=== PATIENT | female | born 1945 | race Caucasian/White ===

== ENCOUNTER 2018-11-27 11:28 | Outpatient (CLI) | payer OTHER | END 2018-11-27 11:29 | disposition home or self-care (01) | LOC: DI.N 11:28 | DX: Z12.31 Encounter for screening mammogram for malignant neoplasm of breast (principal) | CPT/HCPCS: 77067 ==

== ENCOUNTER 2019-11-18 12:25 | Outpatient (CLI) | payer MEDICARE ==
--- NOTE | 2019-11-18 15:31 | Mammography Report ---
Reason: ROUTINE MAMMO Procedure Date: 11/18/2019 Accession Number: [id number] / [id number] Procedure: MGN - Screening Mammo w/Checo CPT Code: Final Report FULL RESULT: EXAM: Screening Mammo w/Checo DATE: 11/18/2019 12:59 PM CLINICAL HISTORY: Routine screening TECHNIQUE: (B) - Bilateral CC and MLO views were obtained. COMPARISON: 11/27/2018 PARENCHYMAL PATTERN: (D) - The breasts demonstrate heterogeneously dense fibroglandular parenchyma bilaterally. FINDINGS: No significant interval change. There are no suspicious masses, calcifications, or areas of distortion. IMPRESSION: Negative examination. BI-RADS category 1. RECOMMENDATION: (ANNUAL) - Recommend routine annual screening mammography. BI-RADS CATEGORY: (1) - Negative. STANDARD QUALIFYING STATEMENTS: 1. This examination was not reviewed with the aid of Computer-Aided Detection (CAD). 2. A negative or benign imaging report should not preclude biopsy if clinically suspicious findings are present. 3. Dense breasts may obscure an underlying neoplasm. 4. This examination was reviewed with the aid of 3D breast imaging (tomosynthesis).
== END 2019-11-18 12:26 | disposition home or self-care (01) ==
LOC: DI.N 12:25
DX: Z12.31 Encounter for screening mammogram for malignant neoplasm of breast (principal)
CPT/HCPCS: 77063; 77067

== ENCOUNTER 2020-09-22 11:26 | Outpatient (CLI) | payer MEDICARE ==
--- NOTE | 2020-09-22 15:13 | XRAY Report ---
PROCEDURE: Hip w/Pelvis 2-3V LT INDICATIONS: ACUTE ON CHRONIC LT HIP PAIN TECHNIQUE: AP pelvis with lateral view(s) of the bilateral hip(s). COMPARISON: None. FINDINGS: Bones: No fractures or dislocations. Pelvic ring appears intact. No suspicious bony lesions. Bila teral hip joint space narrowing is present, left greater than right. Minimal periarticular osteophyte s are present. Narrowing of sacroiliac joints are noted. Soft tissues: The visualized bowel gas pattern is normal. No suspicious soft tissue calcifications. IMPRESSION: Bilateral osteoarthritis within the hips as above. Reviewed by: Mariposa Walters MD on 09/22/2020 3:11 PM PST Approved by: Mariposa Walters MD on 09/22/2020 3:11 PM PST Station ID: [id number]
== END 2020-09-22 11:27 | disposition home or self-care (01) ==
LOC: DI.N 11:26
PROVIDERS: ATTEND Family Medicine
DX: M16.0 Bilateral primary osteoarthritis of hip (principal)

== ENCOUNTER 2021-01-05 15:07 | Outpatient (CLI) | payer MEDICARE ==
--- NOTE | 2021-01-06 09:35 | Mammography Report ---
BILATERAL DIGITAL SCREENING MAMMOGRAM 3D/2D: 01/05/2021 CLINICAL: Family history of breast cancer. Routine screening. Comparison is made to exams dated: 11/18/2019 mammogram and 11/27/2018 mammogram - [facility]. The tissue of both breasts is heterogeneously dense. This may lower the sensitivity of ma mmography. No significant masses, calcifications, or other findings are seen in either breast. There has been no significant interval change. IMPRESSION: NEGATIVE There is no mammographic evidence of malignancy. A 1 year screening mammogram is recommended. This exam was interpreted at Station ID: [id number]. NOTE: For mammograms, a report in lay terms will be sent to the patient. Approximately 15% of breast malignancies will not be visualized mammographically. In the management of a palpable breast mass, a negative mammogram must not discourage biopsy of a clinically suspicious lesion. Electronically Signed By: Arnoldo Shi M.D. ddp/penrad:01/05/2021 16:20:30 ACR BI-RADS Category 1: Negative 3341F PARENCHYMAL PATTERN: (D) - The breast(s) demonstrate(s) heterogeneously dense fibroglandular parenchy ma. BI-RADS CATEGORY: (1) - 1 RECOMMENDATION: (ANNUAL) - Recommend routine annual screening mammography. [id number] 1 year screening LATERALITY: (B)
== END 2021-01-05 15:08 | disposition home or self-care (01) ==
LOC: DI.N 15:07
DX: Z12.31 Encounter for screening mammogram for malignant neoplasm of breast (principal); Z80.3 Family history of malignant neoplasm of breast

== ENCOUNTER 2022-08-14 17:43 | Emergency (ER) | payer MEDICARE ==
[2022-08-14] MEDS ORDERED: oxyCODONE 5 MG TABLET PO STA (18:11)
--- NOTE | 2022-08-14 18:58 | ED Physician Documentation ---
PD HPI BACK PAIN - Stated complaint Stated Complaint: BACK PX - Chief complaint Chief Complaint: Back Pain - History obtained from History obtained from: Patient, EMS - History of Present Illness Timing - onset: How many days ago (1) Timing - duration: Days (1) Timing - details: Gradual onset Pain level max: 8 Pain level now: 8 Location: Lower, Right Quality: Pain, Spasm, Similar to prior episodes Associated symptoms: No: Fever, Weakness, Numbness, Incontinent of urine, Unable to urinate, Hematuria, Incontinent of stool Improves with: Rest Worsened by: Movement Contributing factors: No: Lifting, Twisting, Trauma, Anticoagulated, Cancer, IVDA - Additional information Additional information: Patient is a 77-year-old female who states that she has had back pain that started today. She states it is similar to her prior episodes of sciatica. She states that radiates down the left leg. Worse with movement, better with rest. Complains of pain and spasm. No incontinence of urine. No numbness or tingling. Has not taken anything for the pain other than Tylenol. She did have back surgery in 1979. Patient denies any trauma. She has been moving benches around her house. Patient is on flecainide, Fosamax and metoprolol at home Review of Systems Constitutional: denies: Fever, Chills Respiratory: denies: Cough GI: denies: Abdominal Pain, Nausea, Vomiting, Diarrhea : denies: Incontinent Skin: denies: Rash Musculoskeletal: denies: Neck pain Neurologic: denies: Focal weakness PD PAST MEDICAL HISTORY - Past Medical History Past Medical History: Yes Cardiovascular: Atrial fibrillation Musculoskeletal: Osteoporosis - Allergies Allergies/Adverse Reactions: Allergies Allergy/AdvReac Type Severity Reaction Status Date / Time No Known Drug Allergies Allergy Verified 08/14/22 17:49 PD ED PE NORMAL - Vitals Vital signs reviewed: Yes - General General: Alert and oriented X 3, No acute distress - HEENT HEENT: Moist mucous membranes - Neck Neck: Supple, no meningeal sign - Cardiac Cardiac: RRR, Strong equal pulses - Respiratory Respiratory: No respiratory distress, Clear bilaterally - Abdomen Abdomen: Soft, Non tender, Non distended - Back Back: No spinal TTP (No midline tenderness palpation or percussion. No step-off or deformity. There is paraspinal spasm left low lumbar.) - Derm Derm: Warm and dry - Extremities Extremities: No edema - Neuro Neuro: Alert and oriented X 3, No motor deficit, No sensory deficit, Other (Normal bilateral lower extremity patellar and ankle jerk reflexes. Normal great toe extension bilaterally. no saddle anesthesia) - Psych Psych: Normal mood, Normal affect Results - Vitals Vitals: Vital Signs - 24 hr 08/14/22 17:49 Temperature 37.0 C Heart Rate 64 Respiratory 18 Rate Blood Pressure 152/100 H O2 Saturation 100 Oxygen O2 Source Room air PD MEDICAL DECISION MAKING - ED course Complexity details: re-evaluated patient, considered differential (No cauda equina, no spinal epidural abscess, no fracture, no aortic dissection or evidence of aneursym rupture), d/w patient ED course: 77-year-old female with low back pain, similar to prior episodes of sciatica. No acute injury. Given oxycodone, Toradol, Robaxin. Patient will need to be rechecked after medication to see if her spasms are improving. If symptoms are improving as expected, she will likely be able to go home on pain medication and muscle relaxants. Would avoid Flexeril given the flecainide. No evidence of cauda equina, epidural abscess. No focal neurological deficits. Patient signed out to the oncoming emergency department physician. This document was made in part using voice recognition software. While efforts are made to proofread this document, sound alike and grammatical errors may occur. Departure - Departure Clinical Impression: Back pain Qualifiers: Back pain location: low back pain Chronicity: acute Back pain laterality: left Sciatica presence: with sciatica Sciatica laterality: sciatica of left side Qualified Code(s): M54.42 - Lumbago with sciatica, left side Sciatica Qualifiers: Laterality: left Qualified Code(s): M54.32 - Sciatica, left side Condition: Good
[2022-08-14] MEDS ORDERED: KETOROLAC 30 MG/ML VIAL IM STA (19:02)
[2022-08-14] MEDS ORDERED: methocarbamoL 500 MG TABLET PO STA (19:02)
[2022-08-14] MEDS ORDERED: HYDROmorphone 1 MG/ML CARPUJECT IM STA (20:10)
--- NOTE | 2022-08-14 20:11 | ED Physician Documentation ---
ED Addendum - Addendum Addendum: 08/14/22 20:[address] Bob approximately 7 PM shift change. Per signout she has a history of back issues and presents with an exacerbation of pain in the left lower back, much worse with movement. There was no specific injury. Pain is mild to nonexistent at rest but severe with any motion. My evaluation she has received Robaxin, oxycodone, and Toradol and is still in significant pain if she tries to move. Will image the lumbar spine given advanced age and history of osteoporosis. 08/14/22 22:38 Much better after 1mg IM dilaudid. CT L spine showing severe DJD, no fx or pathologic lesion otherwise. 08/14/22 22:39 Dispo: [facility] home Condition stable
[2022-08-14] MEDS ORDERED: CYCLOBENZAPRINE 10 MG Prepack 2 PO PRN (21:10)
[2022-08-14] MEDS ORDERED: oxyCODONE/ACET 5/325 Prepack 4 PO STA (21:10)
[2022-08-14 21:27] VITALS: BP 143/71
--- NOTE | 2022-08-14 21:35 | CT Report ---
PROCEDURE: LUMBAR SPINE WO INDICATIONS: back inj TECHNIQUE: Noncontrast 3 mm thick sections acquired from the T12 level to the sacrum. Sagittal and coronal refo rmats were constructed. For radiation dose reduction, the following was used: automated exposure co ntrol, adjustment of mA and/or kV according to patient size. COMPARISON: None. FINDINGS: Image quality: Excellent. Bones: There is preserved bony alignment. No definite acute fractures. Specifically, no acute verte bral body compression fractures. No suspicious lytic or blastic bony lesions. Central spinal calibe r is of normal overall caliber. No pars defects. There is multilevel degenerative disc disease incl uding moderate to severe narrowing at L3-L4 and L4-L5 as well as moderate degeneration at L5-S1. Ther e is mild facet arthropathy at L5-S1. No definite high-grade spinal canal or neuroforaminal narrowing with evaluation limited on CT. Soft tissues: No retroperitoneal masses or hematomas. Visualized aorta is normal in caliber. IMPRESSION: 1. No fracture or subluxation. 2. Multilevel degenerative disc disease including moderate to severe degeneration in the lower lumbar spine. Reviewed by: Arnoldo Shi MD on 08/14/2022 9:34 PM PST Approved by: Arnoldo Shi MD on 08/14/2022 9:34 PM PST Station ID: [id number]
== END 2022-08-14 21:40 | disposition home or self-care (01) ==
LOC: EDUNIT# → ED 17:43
DX: M54.42 Lumbago with sciatica, left side (principal); I48.91 Unspecified atrial fibrillation; M81.0 Age-related osteoporosis without current pathological fracture
CPT/HCPCS: 96372; 99284

== ENCOUNTER 2022-08-14 23:39 | Emergency (ER) | payer MEDICARE ==
[2022-08-14] MEDS ORDERED: SODIUM CHLORIDE 0.9% 500 ML IV STA (23:48)
[2022-08-14 23:57] LABS: BASOPHILS # (AUTO) 0.1 10^3/uL (0.0-0.1); BASOPHILS % (AUTO) 0.6 %; EOSINOPHILS # (AUTO) 0.1 10^3/uL (0.0-0.7); EOSINOPHILS % (AUTO) 1.2 %; HCT - HEMATOCRIT 42.9 % (37.0-47.0); HGB - HEMOGLOBIN 14.1 g/dL (12.0-16.0); LYMPHOCYTES # (AUTO) 2.3 10^3/uL (1.5-3.5); LYMPHOCYTES % (AUTO) 19.9 %; MEAN CORPUSCULAR HEMOGLOBIN 30.1 pg (27.0-31.0); MEAN CORPUSCULAR HGB CONC 32.9 g/dL (32.0-36.0); MEAN CORPUSCULAR VOLUME 91.5 fL (81.0-99.0); MEAN PLATELET VOLUME 9.8 fL (7.9-10.8); MONOCYTES # (AUTO) 0.6 10^3/uL (0.0-1.0); MONOCYTES % (AUTO) 4.7 %; NEUTROPHILS # (AUTO) 8.5 10^3/uL (1.5-6.6); NEUTROPHILS % (AUTO) 73.3 %; PLT - PLATELET COUNT 285 10^3/uL (130-450); RED BLOOD COUNT 4.69 10^6/uL (4.20-5.40); RED CELL DISTRIBUTION WIDTH 13.7 % (12.0-15.0); WHITE BLOOD COUNT 11.6 x10^3/uL (4.8-10.8)
--- NOTE | 2022-08-15 00:01 | ED Physician Documentation ---
History of Present Illness - Stated complaint Stated Complaint: DIZZY - Chief complaint Chief Complaint: General - History obtained from History obtained from: Patient - Additonal information Additional information: 77yF with pmh afib presents s/p acute episode of nausea and lightheadedness this evening. patient was just here an hour ago for sciatica and received several pain meds (robaxin, oxycodone, IM dilaudid) with relief of her pain but on arrival home she began to feel nauseous and tried to lift the toilet seat to throw up and felt suddenly very weak then slumped to to ground in a controlled fall. no HT. no injuries noted. feels better at present. denies cp, palpitations, soa. received zofran 4mg iv en route with resolution of nausea Review of Systems Ten Systems: 10 systems reviewed and negative Constitutional: denies: Fever, Chills GI: reports: Nausea Neurologic: reports: Generalized weakness, Other (lightheadedness) PD PAST MEDICAL HISTORY - Past Medical History Cardiovascular: Atrial fibrillation Musculoskeletal: Osteoporosis - Present Medications Home Medications: Ambulatory Orders Medication Instructions Recorded Confirmed Cyclobenzaprine [Flexeril] 10 mg PO TID PRN #20 tablet 08/14/22 08/15/22 Dabigatran [Pradaxa] 150 mg PO DAILY 08/14/22 08/14/22 Oxycodone HCl/Acetaminophen 1 - 2 each PO Q6H PRN #14 tablet 08/14/22 08/15/22 [Percocet 5-325 mg Tablet] atenoloL [Tenormin] 50 mg PO DAILY 08/14/22 08/14/22 - Allergies Allergies/Adverse Reactions: Allergies Allergy/AdvReac Type Severity Reaction Status Date / Time No Known Drug Allergies Allergy Verified 08/14/22 23:45 PD ED PE NORMAL - Vitals Vital signs reviewed: Yes - General General: Alert and oriented X 3, No acute distress, Well developed/nourished - HEENT HEENT: Atraumatic, PERRL, EOMI, Pharynx benign, Other (dry MM) - Neck Neck: No bony TTP - Cardiac Cardiac: RRR - Respiratory Respiratory: No respiratory distress, Clear bilaterally - Abdomen Abdomen: Non tender, Non distended - Derm Derm: Normal color, Warm and dry - Extremities Extremities: No deformity - Neuro Neuro: Alert and oriented X 3, No motor deficit, No sensory deficit - Psych Psych: Normal mood, Normal affect Results - Vitals Vitals: Vital Signs - 24 hr 08/14/22 08/14/22 08/15/22 23:45 23:48 00:55 Temperature 36.6 C 36.6 C Heart Rate 60 60 66 Respiratory 16 16 16 Rate Blood Pressure 144/75 H 144/75 H 134/67 H O2 Saturation 99 99 96 08/15/22 08/15/22 08/15/22 01:28 02:31 06:00 Temperature Heart Rate 65 71 Respiratory 13 15 11 L Rate Blood Pressure 130/66 124/69 O2 Saturation 95 98 Oxygen O2 Source Room air - EKG (time done) 0020 Rate: Rate (enter#) (61) Rhythm: NSR Intervals: Other (QT 675) Ischemia: Normal ST segments 0134 Rhythm: NSR Intervals: Other (qt/qtc 491/495) - Labs Labs: Laboratory Tests 08/14/22 08/14/22 08/15/22 00:08 23:50 00:08 WBC 11.6 H RBC 4.69 Hgb 14.1 Hct 42.9 MCV 91.5 MCH 30.1 MCHC 32.9 RDW 13.7 Plt Count 285 MPV 9.8 Neut # (Auto) 8.5 H Lymph # (Auto) 2.3 [place] # (Auto) 0.6 Eos # (Auto) 0.1 Baso # (Auto) 0.1 Absolute Nucleated RBC 0.00 Nucleated RBC % 0.0 Sodium 140 Potassium 3.5 Chloride 107 Carbon Dioxide 25 Anion Gap 8.0 BUN 18 Creatinine 0.8 Estimated GFR (MDRD) 70 L Glucose 108 H Calcium 8.7 Magnesium 1.9 Total Bilirubin 0.5 AST 16 ALT 13 Alkaline Phosphatase 52 Total Protein 6.8 Albumin 3.7 Globulin 3.1 Albumin/Globulin Ratio 1.2 Lipase 29 PD MEDICAL DECISION MAKING - ED course ED course: 77yF presents s/p presyncopal episode. suspect medication induced orthostasis. will administer gentle fluids, obtain ekg, labs, reevaluate. Labwork noncontributory. Initial ekg had baseline artifact but seemed to exhibit qt prolongation. Repeat ekg with improvement in qtc to 495, still with baseline motion artifact. Patient is not on known qt prolonging meds. in fact, her fleicanide is qt shortener. potassium, magnesium blood levels were normal. no signs of arrhythmia during her period of cardiac monitoring in the ed. most likely explanation for her presyncope is medication induced given she received multiple pain meds just prior to episode. she is now asymptomatic and would like to go home. d/w patient and plan to dc home with return precautions. plan to f/u pcp. Departure - Departure Disposition: Home, Self Care Clinical Impression: Pre-syncope Condition: Good Instructions: ED Near Syncope Unkn Comments: You were seen in the ED for a near-fainting episode. It is possible this was caused by a combination of dehydration and the pain medications you received earlier tonight. Please make sure you take it easy in the next couple days, get lots of rest, and follow up with your primary care provider. Return to the ED if you have new or worsening symptoms or other concerns.
[2022-08-15 00:30] LABS: ALBUMIN 3.7 g/dL (3.2-5.5); ALBUMIN/GLOBULIN RATIO 1.2 (1.0-2.2); BILIRUBIN,TOTAL 0.5 mg/dL (0.2-1.0); CALCIUM 8.7 mg/dL (8.5-10.3); CREATININE 0.8 mg/dL (0.4-1.0); POTASSIUM 3.5 mmol/L (3.5-5.0); TOTAL PROTEIN 6.8 g/dL (6.7-8.2)
[2022-08-15 06:01] VITALS: BP 124/69
[2022-08-15] MEDS ORDERED: KETOROLAC 30 MG/ML VIAL IM STA (06:31)
[2022-08-15] MEDS ORDERED: KETOROLAC 15 MG/ML VIAL IVP STA (06:44)
== END 2022-08-15 09:11 | disposition home or self-care (01) ==
LOC: EDUNIT# → ED 23:39
DX: R55 Syncope and collapse (principal); I48.91 Unspecified atrial fibrillation; M54.42 Lumbago with sciatica, left side; M81.0 Age-related osteoporosis without current pathological fracture
CPT/HCPCS: 36415; 72131; 80053; 83690; 83735; 85025; 93005; 96372; 96374; 99282; 99284; A9270; J1170

== ENCOUNTER → 2022-08-14 | Outpatient (CLI) | payer MEDICARE | END | disposition critical access hospital (66) | LOC: EMS 17:22 | DX: M54.50 Low back pain, unspecified (principal) | CPT/HCPCS: A0425; A0429 ==

== ENCOUNTER → 2022-08-14 | Outpatient (CLI) | payer MEDICARE | END | disposition critical access hospital (66) | LOC: EMS 23:23 | DX: R42 Dizziness and giddiness (principal); R11.0 Nausea | CPT/HCPCS: A0425; A0427 ==

== ENCOUNTER 2022-12-06 12:08 | Outpatient (CLI) | payer MEDICARE | END 2022-12-06 23:59 | disposition EMS.NT | LOC: EMS 12:08 | DX: M54.50 Low back pain, unspecified (principal) ==

== ENCOUNTER 2023-04-15 09:16 | Outpatient (CLI) | payer MEDICARE ==
--- NOTE | 2023-04-15 15:04 | XRAY Report ---
PROCEDURE: Hips 2V BILAT INDICATIONS: BILATERAL HIP PX TECHNIQUE: 2 views of the hip were acquired. COMPARISON: 09/22/2020 FINDINGS: Bones: No fractures or dislocations. No suspicious bony lesions. Mild joint space narrowing and s mall marginal osteophytes, stable Soft tissues: No suspicious soft tissue calcifications or masses. IMPRESSION: Stable mild bilateral hip osteoarthritis Reviewed by: Rell Dueñas MD on 04/15/2023 2:02 PM AKDT Approved by: Rell Dueñas MD on 04/15/2023 2:02 PM AKDT Station ID: [id number]
== END 2023-04-15 09:17 | disposition home or self-care (01) ==
LOC: DI 09:16
PROVIDERS: ATTEND Physician Assistant
DX: M16.0 Bilateral primary osteoarthritis of hip (principal)